=== PATIENT | female | born 1990 | race Caucasian/White ===

== ENCOUNTER 2017-01-10 18:40 | Emergency (ER) | payer MEDICAID ==
--- NOTE | 2017-01-22 10:17 | ER ---
ADMIT: 01/10/2017 RM/LOC: ER [facility] MR#: [id number] [address] [address] NAYA DUQUE [address] [place] [id number] Emergency Room Report SEX: F AGE: 26 : 1990 DATE: 01/10/2017 ADDENDUM: CHIEF COMPLAINT: Suprapubic abdominal pain. HISTORY OF PRESENT ILLNESS: This is a 26-year-old who is about 19 weeks' . She does not have any vaginal bleeding. Denies any dysuria. Said she has felt quite a bit of cramping in her lower abdomen. I did do a urine GC and chlamydia and wet [place], everything is negative. I told her this just could be everything expanding as long as she is not bleeding. We have heart tones. I do not have any concerns about the . She has had an appendectomy, so I am not concerned about that. CLINICAL IMPRESSION: Discomforts of , second trimester. LAURA Chacko / Mariano Jc MD / kehinde JOB #: [id number] CC: Pascual Nielsen MD, Attending Physician Augustina Mcarthur MD, Family Physician
[2017-05-30] MEDS ORDERED: COLACE-DPS100 MG PO (10:27)
[2017-05-30] MEDS ORDERED: MOTRIN-DPS800 MG PO (10:27)
[2017-05-30] MEDS ORDERED: ZOLOFT50 MG PO (10:27)
[2017-05-30] MEDS ORDERED: PRENATAL VITAM1 EAC6 PO (10:27)
[2017-05-30] MEDS ORDERED: NIPPLECREAM TP (10:28)
[2017-05-30] MEDS ORDERED: TYLENOL EXTRA500 M1 PO (10:28)
[2017-05-30] MEDS ORDERED: LAN-O-SOOTHE7 GM TP (10:28)
== END 2017-01-10 20:55 | disposition home or self-care (01) ==
LOC: ER 18:40
DX: O99.89 Other specified diseases and conditions complicating pregnancy, childbirth and the puerperium (principal); R10.2 Pelvic and perineal pain; O99.342 Other mental disorders complicating pregnancy, second trimester; F31.9 Bipolar disorder, unspecified; F41.9 Anxiety disorder, unspecified; O99.512 Diseases of the respiratory system complicating pregnancy, second trimester; J45.909 Unspecified asthma, uncomplicated; O99.332 Smoking (tobacco) complicating pregnancy, second trimester; F17.210 Nicotine dependence, cigarettes, uncomplicated; Z3A.19 19 weeks gestation of pregnancy

== ENCOUNTER → 2017-01-21 | Outpatient (CLI) | payer MEDICAID ==
[~2017-01-21] MED LIST: COLACE-DPS100 MG PO; LAN-O-SOOTHE7 GM TP; MOTRIN-DPS800 MG PO; NIPPLECREAM TP; PRENATAL VITAM1 EAC6 PO; TYLENOL EXTRA500 M1 PO; ZOLOFT50 MG PO
== END | disposition home or self-care (01) ==
DX: Z36 Encounter for antenatal screening of mother (principal); Z3A.20 20 weeks gestation of pregnancy

== ENCOUNTER 2017-01-29 16:17 | Emergency (ER) | payer MEDICAID ==
--- NOTE | 2017-02-06 11:03 | ER ---
ADMIT: 01/29/2017 RM/LOC: ER [facility] MR#: [id number] [id number] [address] NAYA DUQUE [address] [place] [address] Emergency Room Report SEX: F AGE: 26 : 1990 DATE: 01/29/2017 CHIEF COMPLAINT: Dental pain. HISTORY OF PRESENT ILLNESS: This is a 26-year-old female, who has widespread dental decay. I did do a dental block, she feels significantly better. Her pain is mostly in the right upper molars. She has multiple fractured teeth. In fact, she just needs most of her teeth pulled out. I sent her home with amoxicillin for 10 days. I am prescribing her a few [place] for pain. CLINICAL IMPRESSION: Widespread dental decay. DISPOSITION: I did give her either [facility] or [facility] to follow up with if she cannot get any dentist around here. LAURA Chacko / Pascual Nielsen MD / chrisl JOB #: [id number] CC: Pascual Nielsen MD, Attending Physician Pamela Whittington MD, Family Physician
[2017-05-30] MEDS ORDERED: COLACE-DPS100 MG PO (10:27)
[2017-05-30] MEDS ORDERED: ZOLOFT50 MG PO (10:27)
[2017-05-30] MEDS ORDERED: MOTRIN-DPS800 MG PO (10:27)
[2017-05-30] MEDS ORDERED: PRENATAL VITAM1 EAC6 PO (10:27)
[2017-05-30] MEDS ORDERED: NIPPLECREAM TP (10:28)
[2017-05-30] MEDS ORDERED: TYLENOL EXTRA500 M1 PO (10:28)
[2017-05-30] MEDS ORDERED: LAN-O-SOOTHE7 GM TP (10:28)
== END 2017-01-29 17:50 | disposition home or self-care (01) ==
LOC: ER 16:17
PROC: 3E0T3BZ Introduction of Anesthetic Agent into Peripheral Nerves and Plexi, Percutaneous Approach (ICD-10-PCS; principal; 2017-01-29)
DX: K02.9 Dental caries, unspecified (principal)